=== PATIENT | male | born 1965 | race Caucasian/White ===

== ENCOUNTER 2017-02-23 13:27 | Observation (INO) | payer MEDICAID ==
[~2017-02-23] VITALS: Ht 180.3 cm; Wt 87.1 kg
--- NOTE | ~2017-02-23 | ECH ---
Transthoracic Echocardiography Report (TTE) Demographics Patient Name ANDREINA LAGUNAS Date of Study 02/24/2017 Patient Number [id number] Visit Number [id number] Date of 1965 Room Number 420 Accession Number [id number] Gender Male Age 52 year(s) Referring Joseph BUITRAGO Tube Cutter Kasey Ceron [facility] Physician Paulino Duffy Physician Interpreting Joseph BUITRAGO Career Development Director Physician Paulino Supervising Ordering Physician Rafa Duffy MD/MLP Nurse Stress Toe Stapler Conclusions Contractility Score Summary Normal Left Ventricular contractility was noted. Summary Technically fair exam. The estimated left ventricular ejection fraction is 65%. Diastolic assessment reveals Grade I diastolic dysfunction. Mild mitral regurgitation by color Doppler. Aortic valve normal trileaflet structure. There are mildly increased velocities across valve but valve functions normally. There is no aortic regurgitation by color Doppler. No other significant valvular abnormalities. The ascending aorta appears mildly dilated. The maximum diameter measures 4.06 cm. Recommendation The patient will be given the results of this study by the physician who ordered the exam. Procedure Type of Study TTE procedure:Echo Complete SF. Procedure Date Date: 02/24/2017 Start: 12:03 PM Technical Quality: Adequate visualization Indications:Atypical Chest Pain. Appropriate Use Criteria: 9 Height: 71 inches Weight: 192 pounds BSA: 2.07 m Rhythm: Within normal limits HR: 86 bpm BP: 125/75 mmHg M-Mode/2D Measurements LV Diastolic Dimension: 5.31 cm LV Systolic Dimension: 2.54 cm LV Septum Diastolic: 0.85 cm LV PW Diastolic: 0.75 cm AO Root Dimension: 2.74 cm Cardiac Output: 5.43 l/min LA Dimension: 3.61 cm Cardiac Index: 2.62 l/min*m RV Diastolic Dimension: 2.53 cm LA volume index: 22 ml/m LVOT: 1.83 cm LVOT VTI: 24.03 cm RV Base: 2.9 cm LV Stroke volume: 63.17 ml RV Mid: 2.1 cm LV Stroke volume index: 30.52 ml/m RV Length: 6.2 cm Doppler Measurements AV Peak Velocity: 2.4 m/s MV Peak E-Wave: 0.77 m/s AV Peak Gradient: 23.04 mmHg MV Peak A-Wave: 0.84 m/s AV Mean Gradient: 12.22 mmHg MV E/A Ratio: 0.92 LVOT Peak Velocity: 1.26 m/s MV P1/2t: 64.5 msec AV Area (Continuity):1.57 cm MV Deceleration Time: 227.9 msec TR Velocity:0.62 m/s MV Area (PHT): 3.41 cm TR Gradient:1.54 mmHg PV Peak Velocity: 1.3 m/s Estimated RAP:5 mmHg PV Peak Gradient: 6.71 mmHg Estimated RVSP: 7 mmHg Estimated PASP: 6.54 mmHg RA Area: 14.27 cm Findings Left Ventricle Normal left ventricle size and function. Diastolic assessment reveals Grade I diastolic dysfunction. Right Ventricle Normal right ventricle structure and function. Left Atrium Normal left atrial size. Right Atrium Normal right atrial size. Mitral Valve Normal mitral valve structure and function. Mild mitral regurgitation by color Doppler. Aortic Valve Aortic valve normal trileaflet structure. Increased velocities across valve, cannot rule out sub valvular membrane. There is no aortic regurgitation by color Doppler. Tricuspid Valve Normal tricuspid valve structure and function. Trivial tricuspid regurgitation by color Doppler. Pulmonic Valve Normal pulmonic valve structure and function. Trivial pulmonic valve regurgitation by color Doppler. Pericardial Effusion No evidence of pericardial effusion. Miscellaneous The ascending aorta appears mildly dilated. The maximum diameter measures 4.06 cm. Pleural Effusion No evidence of pleural effusion. Contractility Score LV regional wall motion:(0-Non visualized 1-Normal 2-Hypokinesis 3-Akinesis 4-Dyskinesis 5-Aneurysm) Signature
[2017-02-25] MEDS ORDERED: ASPIRIN EC81 MG PO (14:17)
[2017-02-25] MEDS ORDERED: TYLENOL DPS325 MG PO (14:18)
[2017-02-25] MEDS ORDERED: LIPITOR DPS10 MG PO (14:18)
[2017-02-25] MEDS ORDERED: PROAIR RESPICL90 MCG IH (14:18)
[2017-02-25] MEDS ORDERED: NICOTINE PATCH1 EAC1 TD (14:19)
--- NOTE | 2017-02-27 06:29 | HP ---
ADMIT: 02/23/2017 RM/LOC: 420 [facility] MR#: [id number] [id number] [facility] [address] [place] [id number] ANDREINA LAGUNAS [address] [address] History and Physical SEX: M AGE: 52 : 1965 DATE OF SERVICE: 02/23/2017 CHIEF COMPLAINT: Chest pain. HISTORY OF PRESENT ILLNESS: The patient is a 52-year-old, white male, otherwise healthy, who came into the emergency room today complaining of chest pain off and on for the last 3 days. He said it felt like that heartburn, but he has been trying some heartburn medications and has not helped. He gets a little short of breath with it, but no nausea or vomiting. No diaphoresis, but did have a dull headache. He says the pain seems to radiate up into his left neck, and he has had some tingling or numbness type feeling in his left arm, but also in both lower legs. He has been a little anxious since it came on as well. Denies any recent cold symptoms. No cough or congestion. No leg swelling. He does not take any routine medicines and has not been taking anything [id number]. He does smoke and does have a family history of heart disease in a brother, so he was nervous. PAST MEDICAL HISTORY: The patient just sees nurse practitioner or PA at the [facility] when he is sick, but really has not gotten a lot of medical care. He denies any documented history of hypertension or hyperlipidemia or diabetes. He did have a colonoscopy done last month and has 6 polyps noted. That was done for some changes in the stool recently, but no blood in the stools. He has not had any bleeding since the procedure and has felt fine. He has also had a tonsillectomy as a child. No other chronic medical issues. MEDICATIONS: None. ALLERGIES: POSSIBLE ALLERGY TO A PAIN MEDICINE AT ONE POINT THAT HE CANNOT REALLY REMEMBER. FAMILY HISTORY: He has a brother, who is just diagnosed with CHF, and he has had coronary artery disease as well with stents placed. His father of complications from a gallbladder surgery. Mother is still alive and in good health. SOCIAL HISTORY: The patient smokes a half pack per day. Has smoked up to a pack per day for the last 30 years. Denies any drug use. Occasionally, will drink alcohol up to 6 beers at a time, but definitely not a nightly thing. No history of withdrawal. REVIEW OF SYSTEMS: GENERAL: The patient denies any fevers or chills. HEENT: He does have a dull headache, but no vision changes or cold symptoms. CARDIAC: Occasional palpitations, otherwise as described above. RESPIRATORY: As above. GASTROINTESTINAL: Does get heartburn off and on. Had the recent stool changes that prompted a colonoscopy. No diarrhea or constipation or blood in the stools. GENITOURINARY: He has been urinating normally with no difficulty. MUSCULOSKELETAL: Denies any significant joint aches or pains. ADMIT: 02/23/2017 RM/LOC: 420 [facility] MR#: [id number] [address] [place] [address] [place] [phone] ANDREINA LAGUNAS [address] [place] [address], [place] [address] History and Physical SEX: M AGE: 52 : 1965 NEURO: Just numbness and tingling in his left arm and both feet as above. PHYSICAL EXAMINATION: GENERAL: The patient is afebrile, pulse 61, respirations 16, blood pressure 105/62, sats are 100% on 2 L. He is alert and oriented x3 and in no acute distress. HEENT: Head is atraumatic, normocephalic. Sclerae are clear. Pupils are round and reactive. Nares are patent. Oropharynx looks moist and without lesions. NECK: Supple with no lymphadenopathy or thyromegaly. HEART: Regular in rate and rhythm without murmurs, nothing on telemetry since he has been here. LUNGS: Sound clear to auscultation bilaterally. ABDOMEN: Soft, nondistended, nontender with good bowel sounds. No chest wall tenderness. EXTREMITIES: No edema. No posterior calf tenderness, and he has 2+ dorsalis pedis pulses. No focal neurologic deficits are noted, and he has normal sensation to light touch in the extremities. LABORATORY DATA: Electrolytes look normal. BUN 13, creatinine 1.0, glucose is 131, magnesium 2.3, CK 89, troponin I less than 0.015. CBC is normal. Chest x-ray shows no acute process. EKG is normal sinus rhythm with minimal ST depression in the inferior leads. ASSESSMENT: 1. Chest pain. 2. Hypertension. 3. Anxiety. 4. Smoker. 5. Family history of coronary artery disease. PLAN: We will admit and rule out with cardiac enzymes. If he has a bump in those or his chest pain does not resolve with treatment, we will get Cardiology involved. He did have an episode of hypotension after giving a third nitroglycerin in the ER, but pressures are better now, so we will place nitroglycerin paste and can give morphine as needed overnight. We will keep him on a baby aspirin and check labs to evaluate further risk factors of lipid and another glucose and A1c in the morning. We will make any changes as needed based on his clinical course. Tati Craig MD/ oliver JOB #: [id number] CC: Tati Craig, Attending Physician Tati Craig, Family Physician
--- NOTE | 2017-02-28 20:52 | CO ---
ADMIT: 02/23/2017 RM/LOC: 420 [facility] MR#: [id number] [address] [phone] ANDREINA LAGUNAS [address] [place] [phone] Consultation SEX: M AGE: 52 : 1965 DATE OF CONSULTATION: 02/24/2017 ATTENDING PHYSICIAN: Tati Craig CONSULTING PHYSICIAN: Paulino Ruiz MD REASON FOR CONSULTATION: Atypical chest pain. HISTORY OF PRESENT ILLNESS: This is a 52-year-old male, who was admitted for chest pain rule out. The patient complains of 3-4 days of on and off left- sided chest pressure that radiates to his left side and neck and down his left arm. He does have some associated shortness of breath and nausea, but no diaphoresis, vomiting, or worsening of symptoms with exertion. He is also complaining of some left arm and hand tingling and has a history of lower extremity neuropathy. He initially thought that his chest pain was due to heartburn, but he saw no improvement in his symptoms with [id number] medications, so he came to the Emergency Department. Three sets of cardiac enzymes were negative and his EKGs all appeared to be normal with no sign of ST depression or ST elevation. He was seen by Dr. Brown back in April of 2009 for a Cardiolite stress test due to a family history of coronary artery disease in his brother. The Cardiolite stress test was negative for ischemia. He also had a TTE that showed normal left ventricular function and valvular function, and an ejection fraction of 67%. He is currently rating his chest pain as 7/10 despite being given morphine and Ativan. PAST MEDICAL HISTORY: 1. Hyperlipidemia, not currently on any medications. 2. History of Cardiolite stress test that was negative for ischemia as well as a transthoracic echo that showed normal valvular function and left ventricular function with an EF of 67%. PAST SURGICAL HISTORY: 1. He did have a colonoscopy one month ago for some changes in his stool. It showed that he had six polyps, but was otherwise normal. 2. Tonsillectomy. MEDICATIONS: None. ALLERGIES: NONE. SOCIAL HISTORY: He does have a 30 pack-year history of smoking. He states that he drinks alcohol occasionally, but no illegal drug use. He also drinks approximately one soda a day, but no coffee. FAMILY HISTORY: He has a brother in his 60s who has CHF as well as coronary artery disease, status post stents. He has a sister with diabetes. REVIEW OF SYSTEMS: GENERAL: Denies fatigue, fever, chills, sweats, rash, or weight loss. ADMIT: 02/23/2017 RM/LOC: 420 [facility] MR#: [id number] [address] [place] [phone] ANDREINA LAGUNAS [facility] [place] [address] Consultation SEX: M AGE: 52 : 1965 EYES: Denies double vision, blurred vision, cataracts, or glaucoma. ENT: Denies hearing loss or problems with nose, mouth or throat. PULMONARY: Denies sputum production, asthma, emphysema or bronchitis. Denies snoring loudly, wakefulness at night, or fatigue upon awakening. Positive for chronic cough. GASTROINTESTINAL: Denies heartburn or difficulty swallowing. Denies dark or bloody stools. No history of ulcers, hiatal hernia, or gallbladder or liver disease. Recent stool caliber change with a colonoscopy about a month ago that showed six polyps. GENITOURINARY: Denies dysuria, hematuria, nocturia, urinary tract infection, or kidney stones. Denies history of renal insufficiency or failure. MUSCULOSKELETAL: Denies history of arthritis or gout. Denies muscle or joint pains. ENDOCRINE: Denies history of thyroid dysfunction or diabetes. HEMATOLOGIC: Denies history of anemia, easy bruising, or cancer. NEUROLOGIC: Denies chronic headaches, dizziness, syncope, stroke, or seizures. He does have numbness and tingling of his bilateral lower extremities and currently in his left upper extremity. PSYCHIATRIC: He does have a history of anxiety. He has seen a psychiatrist in the past, but is not currently on any medications. PHYSICAL EXAMINATION: VITAL SIGNS: Blood pressure 124/73, pulse 72, respirations 16, temp 97.6, saturating 94% on room air. GENERAL: He is alert and oriented x3. No acute distress. HEENT: Nose, clear. Atraumatic. Mucous membranes are moist. No carotid bruits. No lymphadenopathy. JVP is normal. HEART: Regular rate and rhythm. No murmur. LUNGS: Clear to auscultation bilaterally. ABDOMEN: Soft, nontender, and nondistended. EXTREMITIES: No clubbing, cyanosis, or edema. NEURO: Intact. PSYCH: He is anxious. MUSCULOSKELETAL: He does have tenderness to palpation of the left pectoral muscle. LABORATORY DATA: Sodium 139, potassium 3.9, creatinine 0.9, magnesium 2.3. Total cholesterol 162, triglycerides 292, HDL 28, LDL 76. White count 7.0, hemoglobin 15.9, platelets 189. His CRP was negative. Cardiac enzymes negative x3 sets. EKG, normal sinus rhythm x3 sets. Chest x-ray showed no acute cardiopulmonary process. Hemoglobin A1c was 5.7%. ASSESSMENT: 1. Atypical chest pain. ADMIT: 02/23/2017 RM/LOC: 420 [facility] MR#: [id number] [address] [place] [phone] ANDREINA LAGUNAS [address] [place] [address] Consultation SEX: M AGE: 52 : 1965 2. Tobacco abuse. 3. Family history of coronary artery disease. 4. Anxiety. PLAN: We will go ahead and get an echo today. If this is normal, he will be scheduled for treadmill nuclear stress test at [facility] in one to two weeks. He will also follow up with either Dr. Ruiz or Dr. Brown in approximately a month. He has been started on a baby aspirin as well as a moderate intensity statin due to his atherosclerotic coronary vascular disease, 10-year risk score of 12.1%. He was encouraged to quit smoking, and his risk for future coronary artery disease was discussed due to his risk factors of tobacco abuse and family history. Carie Delgado, DO Resident / Paulino Ruiz MD / oliver JOB #: [id number] CC: Tati Craig, Attending Physician Tati Craig, Family Physician
--- NOTE | 2017-03-11 15:23 | ER ---
ADMIT: 02/23/2017 RM/LOC: 420 [facility] MR#: [id number] [address] [address] ANDREINA LAGUNAS [address] [place] [phone] Emergency Room Report SEX: M AGE: 52 : 1965 DATE: 02/23/2017 ADDENDUM: A 52-year-old white male coming in with chest pain. It does radiate up into his jaw and into his arm. Told it is like a pressure tightness at times. Nitroglycerin seemed to help but also dumped his pressure. CBC, chemistry troponin EKG all negative. At this time, a little morphine has pretty much got him pain-free. We are going to admit him. Dr. Craig is events traffic controller. She will admit and rule out. CONDITION ON DISCHARGE: Good. Matt Joe MD/ oliver JOB #: [id number] CC: Tati Craig MD, Attending Physician Tati Craig MD, Family Physician
== END 2017-02-24 19:05 | disposition home or self-care (01) ==
LOC: ER 13:27 → 4PCU 16:15
PROVIDERS: ADMIT Family Medicine
DX: I34.0 Nonrheumatic mitral (valve) insufficiency (principal); I10 Essential (primary) hypertension; F17.200 Nicotine dependence, unspecified, uncomplicated; E78.5 Hyperlipidemia, unspecified; F41.9 Anxiety disorder, unspecified; Z82.49 Family history of ischemic heart disease and other diseases of the circulatory system; Z98.890 Other specified postprocedural states; Z88.6 Allergy status to analgesic agent; Z79.82 Long term (current) use of aspirin; Z79.899 Other long term (current) drug therapy